=== PATIENT | male | born 1965 | race Caucasian/White ===

== ENCOUNTER 2018-09-24 08:52 | Day surgery (SDC) | payer BC ==
[2018-09-04 11:28] VITALS: BMI 35.2
[~2018-09-24 08:52] MED LIST: HEPARIN SODIUM,PORCINE 5,000 UNIT/ML 1 ML VIAL SQ ONE; LACTATED RINGERS 1,000 ML IV SCH; LIDOCAINE 1% 20 ML VIAL (10MG/ML) FOR IV START INTRADERMA PRN; ONDANSETRON 4 MG/2 ML VIAL IVP ONE; ceFAZolin IN SWFI 2 GM/20 ML SYRINGE IVP ONE
--- NOTE | 2018-09-24 10:22 | P.GSHP ---
History of Present Illness H&P Date: 09/24/18 Chief Complaint: Incarcerated umbilical hernia Patient here today for elective hernia repair. Patient has had complaints of pain and swelling at the umbilicus for the last 2-3 months. Increasing in size. Unable to reduce it himself. No history of similar events. Past Medical History Past Medical History: Blood Disorder, Deep Vein Thrombosis (DVT), Hyperlipidemia , Hypertension, Musculoskeletal Disorder, Pulmonary Embolus (PE) Additional Past Medical History / Comment(s): Enlarged heart. HX Lt leg dvt, JENNIFER PE 2013. HX G6PD deficency; PATIENT DENIES "BLOOD DISORDER HX." DDD, chronic back/NECK pain. UMB HERNIA CURRENTLY. History of Any Multi-Drug Resistant Organisms: None Reported Past Surgical History: Hernia Repair Additional Past Surgical History / Comment(s): Rt inguinal hernia. LT MENISCUS REPAIR. DENTAL PROC. Past Anesthesia/Blood Transfusion Reactions: No Reported Reaction Smoking Status: Never smoker - Past Family History Father Family Medical History: Cancer, Hypertension Additional Family Medical History / Comment(s): at age 62- cancer was smoker Mother Family Medical History: Asthma, Diabetes Mellitus, Hypertension Additional Family Medical History / Comment(s): mom is 72 Medications and Allergies Home Medications Medication Instructions Recorded Confirmed Type HYDROcodone/APAP 7.5-325MG [[place] 1 each PO Q6HR PRN 06/29/14 09/24/18 History 7.5-325] Lisinopril [Prinivil] 20 mg PO HS 06/29/14 09/24/18 History Escitalopram Oxalate [Lexapro] 10 mg PO DAILY 09/04/18 09/24/18 History Hydrochlorothiazide [Hydrodiuril] 25 mg PO DAILY 09/04/18 09/24/18 History Naphazoline HCl/Glycerin [Clear 1 - 2 drops OP DIRECTED PRN 09/04/18 History Eyes Max Redness Rlf Drp] Rivaroxaban [Xarelto] 20 mg PO DAILY 09/04/18 09/24/18 History amLODIPine [Norvasc] 5 mg PO DAILY 09/04/18 09/24/18 History Allergies Allergy/AdvReac Type Severity Reaction Status Date / Time black electrical tape Allergy Itching Uncoded 09/24/18 09:20 Surgical - Exam Vital Signs Temp Pulse Resp BP Pulse Ox 97.5 F L 67 16 135/76 96 09/24/18 09:29 09/24/18 09:29 09/24/18 09:29 09/24/18 09:29 09/24/18 09:29 Physical exam: General: Well-developed, well-nourished HEENT: Normocephalic, sclerae nonicteric Abdomen: Nontender, nondistended, incarcerated umbilical hernia Extremities: No edema Neuro: Alert and oriented Assessment and Plan (1) Umbilical hernia, incarcerated Narrative/Plan: Will proceed with open repair incarcerated umbilical hernia with probable mesh. Risks of bleeding, infection, recurrence, bladder and bowel injury, numbness, nerve injury were discussed with the patient. The patient understands and wishes to proceed. Current Visit: Yes Status: Acute Code(s): K42.0 - UMBILICAL HERNIA WITH OBSTRUCTION, WITHOUT GANGRENE SNOMED Code(s): 345808262
[2018-09-24] MEDS ORDERED: MIDAZOLAM 2 MG/2 ML VIAL IV ONE (10:25)
[2018-09-24] MEDS ORDERED: fentaNYL (PF) 50 MCG/ML 2 ML AMP IV ONE (10:26)
[2018-09-24] MEDS ORDERED: DEXAMETHASONE SOD PHOSPHATE 10 MG/ML 1 ML VIAL IV ONE (10:43)
[2018-09-24] MEDS ORDERED: KETOROLAC 30 MG/ML 1 ML VIAL ONE (10:44)
[2018-09-24] MEDS ORDERED: ROPIVACAINE 5 MG/ML 30 ML VIAL ONE (10:44)
[2018-09-24] MEDS ORDERED: GLYCOPYRROLATE 0.2 MG/ML 2 ML VIAL ONE (10:44)
[2018-09-24] MEDS ORDERED: PROPOFOL 10 MG/ML 20 ML VIAL IV ONE (10:44)
[2018-09-24] MEDS ORDERED: NEOSTIGMINE 1 MG/ML 10 ML VIAL ONE (10:44)
[2018-09-24] MEDS ORDERED: ROCURONIUM BROMIDE 10 MG/ML 10 ML VIAL IV ONE (10:44)
[2018-09-24] MEDS ORDERED: fentaNYL (PF) 50 MCG/ML 2 ML AMP ONE (10:44)
[2018-09-24] MEDS ORDERED: SUCCINYLCHOLINE CHLORIDE 100 MG/5 ML SYR IV ONE (10:44)
[2018-09-24] MEDS ORDERED: LIDOCAINE 1% INJ 10MG/ML (20 ML MDV) ONE (10:44)
[2018-09-24] MEDS ORDERED: LACTATED RINGERS 1,000 ML IV ONE (11:33)
[2018-09-24] MEDS ORDERED: HYDROcodone/APAP 5-325MG 1 EACH TAB PO PRN (11:45)
[2018-09-24] MEDS ORDERED: NALOXONE 0.4 MG/ML 1 ML VIAL IV PRN (11:45)
--- NOTE | 2018-09-24 11:47 | P.OP ---
Date of Procedure: 09/24/18 Procedure(s) Performed: PREOPERATIVE DIAGNOSIS: Incarcerated umbilical hernia POSTOPERATIVE DIAGNOSIS: Same PROCEDURE: Incarcerated umbilical herniorrhaphy with mesh SURGEON: Amira EBL: Minimal ANESTHESIA: General COMPLICATIONS: None OPERATIVE PROCEDURE: The patient was placed in the operating table in the supine position. A periumbilical incision was made using the scalpel. The subcutaneous tissues were dissected bluntly. The hernia sac was identified. The umbilical attachments to the fascia were divided using electrocautery. The hernia sac was excised. The hernia sac was sent to pathology. The defect was 1.5cm in size. The pre-perineal space was dissected using blunt dissection and cautery. The 4.3 cm ventral ex mesh was placed in the preperitoneal space and sutured in place using interrupted transfer fascial 0 Ethibond sutures. Following that the defect was closed using interrupted [id number] 0 Ethibond sutures. The subcutaneous tissues were reapproximated using inverted 3 -0 Vicryl sutures. The umbilicus was tacked back down to the fascia using a 3- 0 Vicryl suture. The skin was closed using 4-0 Monocryl sutures. Skin glue and sterile dressings were then applied. DISPOSITION: Stable to recovery room
[2018-09-24 11:59] VITALS: TEMP 97.1
[2018-09-24] MEDS: HYDROmorphone 0.5 MG/0.5 ML SYRINGE IVP PRN ×2 (12:13→12:21)
[2018-09-24 13:16] VITALS: BP 131/80; PULSE 65; RESP 15
--- NOTE | 2018-09-27 08:58 | P.ONQ ---
Anesthesiology Proc Note - PNB - Peripheral Nerve Block Performed Bilateral Rectus Abdominis Single Time Out Performed: Yes Procedure Start Time: Procedure Stop Time: Indication: Acute Post-Operative Pain, Requested by physician Sedation Type: Sedate with meaningful contact maintained Preparation: Sterile Prep Position: Supine Needle Size: 50mm (2") Needle Gauge: 21 Technique: Ultrasound Injectate: 0.5% Ropivacaine (see comment for volume) (ropi .5% 15cc plus xylo 1 % 5cc injected each side) Blood Aspirated: No Pain Paresthesia on Injection Noted: No Resistance on Injection: Normal Events: Uneventful and Well Tolerated
== END 2018-09-24 13:36 | disposition home or self-care (01) ==
LOC: OR 08:52
PROVIDERS: ATTEND Surgery
DX: K42.0 Umbilical hernia with obstruction, without gangrene (principal); I10 Essential (primary) hypertension; E78.5 Hyperlipidemia, unspecified; D55.0 Anemia due to glucose-6-phosphate dehydrogenase [G6PD] deficiency; Z86.718 Personal history of other venous thrombosis and embolism; Z86.711 Personal history of pulmonary embolism; Z87.898 Personal history of other specified conditions; Z87.39 Personal history of other diseases of the musculoskeletal system and connective tissue; Z80.9 Family history of malignant neoplasm, unspecified; Z79.01 Long term (current) use of anticoagulants; Z79.891 Long term (current) use of opiate analgesic; Z79.899 Other long term (current) drug therapy; Z91.048 Other nonmedicinal substance allergy status
CPT/HCPCS: 64486; 88302; 49587; C1781; J2250; J1644; J1100; J2710; J2405; J2001; J3010; J1885; J2795; J0330; J2704; J1170; J0690

== ENCOUNTER → 2020-06-10 | Outpatient (CLI) | payer BC ==
--- NOTE | 2020-06-10 12:53 | US ---
EXAMINATION TYPE: US venous doppler duplex LE RT DATE OF EXAM: 06/10/2020 12:36 PM COMPARISON: NONE CLINICAL HISTORY: M79.661 pain in righ calf. pain right leg, patient on Xarelto SIDE PERFORMED: right TECHNIQUE: The lower extremity deep venous system is examined utilizing real time linear array sonog zohaib with graded compression, doppler sonography and color-flow sonography. VESSELS IMAGED: External Iliac Vein (EIV) Common Femoral Vein Deep Femoral Vein Greater Saphenous Vein * Femoral Vein Popliteal Vein Small Saphenous Vein * Proximal Calf Veins (* superficial vessels) Right Leg: No evidence of DVT IMPRESSION: No evidence of DVT at this time.
== END | disposition home or self-care (01) ==
LOC: RADUSWWP 12:17
PROVIDERS: ATTEND Family Medicine
DX: M79.661 Pain in right lower leg (principal)

== ENCOUNTER 2020-07-08 06:14 | Day surgery (SDC) | payer BC ==
[2020-07-07 08:14] VITALS: BMI 29.7
--- NOTE | 2020-07-07 21:20 | P.GSHP ---
History of Present Illness H&P Date: 07/08/20 CHIEF COMPLAINT: Back mass HISTORY OF PRESENT ILLNESS: The patient is a 54 year-old male with history of lipomas of the upper back. He presents today for surgical excision. PAST MEDICAL HISTORY: Please see list. PAST SURGICAL HISTORY: Please see list. MEDICATIONS: Please see list. ALLERGIES: Please see list. SOCIAL HISTORY: No illicit drug use FAMILY HISTORY: No reports of Crohn disease or ulcerative colitis. REVIEW OF ORGAN SYSTEMS: CONSTITUTIONAL: No reports of fevers or chills. GI: Denies any blood in stools or constipation. PHYSICAL EXAM: VITAL SIGNS: Stable Musculoskeletal: No clubbing, cyanosis, or edema SKIN: Approximately 3 cm lipoma upper back. GENERAL: Well developed and in no acute distress. Pleasant. HEENT: No sclera icterus. Extraocular movements grossly intact. Moist buccal mucosa. Head is atraumatic, normocephalic. Hears conversational speech. No nasal drainage. NECK: Supple without lymphadenopathy. No JV distention. CHEST: Non-labored respirations and equal bilateral excursions. CARDIOVASCULAR: Regular rate and rhythm. Palpable 2+ radial pulses. ABDOMEN: Soft. Non-tender. Nondistended. NEUROLOGIC: No focal or lateralizing signs. PSYCH: Appropriate affect. Alert and oriented to person, place and time. ASSESSMENT: 1. Lipomas along the back. PLAN: 1. Will proceed of excision of subcutaneous tumor along the upper back. 2. DVT prophylaxis. 3. Antibiotic prophylaxis. 4. Time of recovery, at least one week. Past Medical History Past Medical History: Blood Disorder, Deep Vein Thrombosis (DVT), Hyperlipidemia, Hypertension, Musculoskeletal Disorder, Pulmonary Embolus (PE) Additional Past Medical History / Comment(s): Enlarged heart. HX Lt leg dvt, JENNIFER PE 2013. HX G6PD deficency; PATIENT DENIES "BLOOD DISORDER HX." DDD, chronic back/NECK pain. History of Any Multi-Drug Resistant Organisms: None Reported Past Surgical History: Hernia Repair, Orthopedic Surgery Additional Past Surgical History / Comment(s): Rt inguinal hernia. LT MENISCUS REPAIR. DENTAL PROC. , UMBILICAL HERNIA Past Anesthesia/Blood Transfusion Reactions: No Reported Reaction Smoking Status: Never smoker - Past Family History Father Family Medical History: Cancer, Hypertension Additional Family Medical History / Comment(s): at age 62- cancer was smoker Mother Family Medical History: Asthma, Diabetes Mellitus, Hypertension Additional Family Medical History / Comment(s): mom is 72 Medications and Allergies Home Medications Medication Instructions Recorded Confirmed Type HYDROcodone/APAP 7.5-325MG [[place] 1 each PO Q6HR PRN 06/29/14 07/07/20 History 7.5-325] lisinopriL [Prinivil] 20 mg PO HS 06/29/14 07/07/20 History Naphazoline HCl/Glycerin [Clear 1 - 2 drops OP DIRECTED PRN 09/04/18 07/07/20 History Eyes Max Redness Rlf Drp] Rivaroxaban [Xarelto] 20 mg PO DAILY 09/04/18 07/07/20 History amLODIPine [Norvasc] 5 mg PO DAILY 09/04/18 07/07/20 History hydroCHLOROthiazide [Hydrodiuril] 25 mg PO DAILY 09/04/18 07/07/20 History Allergies Allergy/AdvReac Type Severity Reaction Status Date / Time black electrical tape Allergy Itching Uncoded 07/07/20 08:07
[~2020-07-08 06:14] MED LIST changes: +ACETAMINOPHEN TAB 500 MG TAB PO STA; +DEXAMETHASONE SOD PHOSPHATE 10 MG/ML 1 ML VIAL IV ONE; +GABAPENTIN 300 MG CAP PO STA; -HEPARIN SODIUM,PORCINE 5,000 UNIT/ML 1 ML VIAL SQ ONE; +HYDROmorphone 0.5 MG/0.5 ML SYRINGE IVP PRN; +LIDOCAINE 1% (10MG/ML) FOR IV START INTRADERMA PRN; -LIDOCAINE 1% 20 ML VIAL (10MG/ML) FOR IV START INTRADERMA PRN; +MIDAZOLAM 2 MG/2 ML VIAL IV PRN; +Pre Op ABX Message 1 EACH MISC MISCELLANE ONE; -ceFAZolin IN SWFI 2 GM/20 ML SYRINGE IVP ONE
[2020-07-08] MEDS ORDERED: fentaNYL (PF) 50 MCG/ML 2 ML AMP ONE (07:38)
[2020-07-08] MEDS ORDERED: ePHEDrine SULFATE/0.9% NACL/PF 50 MG/5 ML SYRINGE IV ONE (07:38)
[2020-07-08] MEDS ORDERED: MIDAZOLAM 2 MG/2 ML VIAL ONE (07:38)
[2020-07-08] MEDS ORDERED: PROPOFOL 10 MG/ML 20 ML VIAL IV ONE (07:38)
[2020-07-08] MEDS ORDERED: LIDOCAINE 1% INJ 10MG/ML (20 ML MDV) ONE (07:38)
[2020-07-08] MEDS ORDERED: SUCCINYLCHOLINE CHLORIDE 100 MG/5 ML SYR IV ONE (07:38)
[2020-07-08] MEDS ORDERED: BUPIVACAINE (PF) 0.25% 30 ML VIAL SQ ONE ×2 (08:10→08:20)
[2020-07-08 09:03] VITALS: TEMP 97.6
[2020-07-08] MEDS ORDERED: KETOROLAC 15 MG/ML 1 ML VIAL IVP ONE (09:16)
[2020-07-08 09:34] VITALS: PULSE 74
[2020-07-08 09:42] VITALS: BP 121/72; RESP 16
--- NOTE | 2020-07-08 10:06 | P.OP ---
Date of Procedure: 07/08/20 Description of Procedure: SURGEON: CHARLEY MURRAY MD MANAGER RADIO: None. PREOPERATIVE DIAGNOSES: 1. Left upper back tumor 2. Chronic anticoagulant use 3. Hypertensive heart disease 4. Chronic back pain 5. History of deep venous thrombosis 6. Cardiomyopathy 7. History of G6PD deficiency 8. Hyperlipidemia POSTOPERATIVE DIAGNOSES: 1. Deep subcutaneous left upper back tumor, 8 x 4 cm 2. Chronic anticoagulant use 3. Hypertensive heart disease 4. Chronic back pain 5. History of deep venous thrombosis 6. Cardiomyopathy 7. History of G6PD deficiency 8. Hyperlipidemia PROCEDURES PERFORMED: 1. Excision of deep subcutaneous left upper back mass, 8 x 4 cm 2. Complex four layer closure left upper back incision, 9 -cm Anesthesia: GETA, local Estimated Blood Loss (ml): 20 Pathology: other (back mass) Condition: stable Disposition: same day COMPLICATIONS: None. Operative Findings: 1. Excision of deep subcutaneous left upper back tumor 8 x 4 cm 2. Ruptured sebaceous containing cyst excised INDICATIONS: The patient is a 54-year-old male who presents with symptomatic left upper back tumor. Benefits and risks of surgical intervention were described including bleeding, infection, seroma, pain and recurrence. Informed consent was obtained. DESCRIPTION OR PROCEDURE: In the preoperative area, the area of concern was marked with indelible marker. Patient was brought into the operating room. After general induction, he was positioned in prone. The back was prepped and draped in a standard sterile fashion with ChloraPrep. Timeout protocol was confirmed with the surgical team regarding the patient's name, procedure to be performed including preoperative medications. DVT prophylaxis was confirmed. A field block was placed of the left upper back. An transverse elliptical incision using #10 blade was made along the marking into the dermis and subcutaneous tissue. Electro-Bovie cautery was used to enter deep into the deep subcutaneous tissue to the fascia where sebaceous type material from ruptured cyst was identified and removed in total of 8 x 4 cm. 0 Vicryl for the deep subcutaneous tissue followed by 3-0 Vicryl for the subcutaneous tissue was placed in interrupted fashion. 3-0 Monocryl in a running subcuticular fashion was placed along the dermis. The skin was cleansed and Exofin tape with liquid was applied for a four layer closure. The incision was covered with Optifoam dressing. At the end of the procedure, needle, sponge, and instrument count was verified correct by cardiovascular surgical tech. The patient tolerated the procedure well. Plan - Discharge Summary Discharge Rx Participant: No New Discharge Prescriptions: New Acetaminophen [Tylenol] 650 mg PO Q4H #30 tab Continue HYDROcodone/APAP 7.5-325MG [[place] 7.5-325] 1 each PO Q6HR PRN PRN Reason: Pain lisinopriL [Prinivil] 20 mg PO HS amLODIPine [Norvasc] 5 mg PO DAILY Rivaroxaban [Xarelto] 20 mg PO DAILY hydroCHLOROthiazide [Hydrodiuril] 25 mg PO DAILY Naphazoline HCl/Glycerin [Clear Eyes Max Redness Rlf Drp] 1 - 2 drops OP DIRECTED PRN PRN Reason: DRYNESS Discharge Medication List HYDROcodone/APAP 7.5-325MG [[place] 7.5-325] 1 each PO Q6HR PRN 06/29/14 [History] lisinopriL [Prinivil] 20 mg PO HS 06/29/14 [History] Naphazoline HCl/Glycerin [Clear Eyes Max Redness Rlf Drp] 1 - 2 drops OP DIRECTED PRN 09/04/18 [History] Rivaroxaban [Xarelto] 20 mg PO DAILY 09/04/18 [History] amLODIPine [Norvasc] 5 mg PO DAILY 09/04/18 [History] hydroCHLOROthiazide [Hydrodiuril] 25 mg PO DAILY 09/04/18 [History] Acetaminophen [Tylenol] 650 mg PO Q4H #30 tab 07/08/20 [Rx] Follow up Appointment(s)/Referral(s): Charley Murray MD [STAFF PHYSICIAN] - 07/12/20 Patient Instructions/Handouts: *Surgery [facility] - (Anesthesia) Discharge Instructions Outpatient Surgery, Dermal Cyst Excision (DC), Excision of Skin Lesion (DC) Activity/Diet/Wound Care/Special Instructions: DO NOT STAR XARELTO/BLOOD THINNER UNTIL JUL 12, SATURDAY NOTIFY YOUR PAIN DOCTOR FOR MORE NARCOTICS, if needed DO NOT REMOVE DRESSING! KEEP DRESSING DRY. Use ice along the dressing to m inimize bruising. May gently wash around the dressing with soap and water. EXPECT BRUISING resolves within 1-2 weeks. Please take Tylenol scheduled for next 2-3 days. Discharge Disposition: HOME SELF-CARE
[2020-07-08] MEDS ORDERED: ENOXAPARIN 40 MG/0.4 ML SYRINGE SQ STA (10:07)
[2020-07-08] MEDS ORDERED: ENOXAPARIN 40 MG/0.4 ML SYRINGE SQ ONE (11:00)
== END 2020-07-08 10:30 | disposition home or self-care (01) ==
LOC: OR 06:14
PROVIDERS: ATTEND Surgery Plastic and Reconstructive Surgery
DX: L72.0 Epidermal cyst (principal); I11.9 Hypertensive heart disease without heart failure; I43 Cardiomyopathy in diseases classified elsewhere; G89.29 Other chronic pain; M54.9 Dorsalgia, unspecified; M54.2 Cervicalgia; D75.A Glucose-6-phosphate dehydrogenase (G6PD) deficiency without anemia; E78.5 Hyperlipidemia, unspecified; M51.9 Unspecified thoracic, thoracolumbar and lumbosacral intervertebral disc disorder; Z86.018 Personal history of other benign neoplasm; Z86.718 Personal history of other venous thrombosis and embolism; Z86.711 Personal history of pulmonary embolism; Z87.19 Personal history of other diseases of the digestive system; Z98.890 Other specified postprocedural states; Z87.39 Personal history of other diseases of the musculoskeletal system and connective tissue; Z79.891 Long term (current) use of opiate analgesic; Z79.899 Other long term (current) drug therapy; Z79.01 Long term (current) use of anticoagulants; Z91.09 Other allergy status, other than to drugs and biological substances; Z80.9 Family history of malignant neoplasm, unspecified; Z81.2 Family history of tobacco abuse and dependence; Z82.49 Family history of ischemic heart disease and other diseases of the circulatory system; Z82.5 Family history of asthma and other chronic lower respiratory diseases; Z83.3 Family history of diabetes mellitus
CPT/HCPCS: 88304; 11406; 12034; J2250; J1100; J0690; J2405; J2001; J1650; J3010; J1885; J0330; J2704

== ENCOUNTER 2020-07-28 06:18 | Day surgery (SDC) | payer BC ==
[2020-07-26 14:03] VITALS: BMI 29.8
[~2020-07-28 06:18] MED LIST changes: -ACETAMINOPHEN TAB 500 MG TAB PO STA; -DEXAMETHASONE SOD PHOSPHATE 10 MG/ML 1 ML VIAL IV ONE; +DEXAMETHASONE SOD PHOSPHATE 4 MG/ML 1 ML VIAL IV ONE; -GABAPENTIN 300 MG CAP PO STA
[2020-07-28] MEDS ORDERED: MIDAZOLAM 2 MG/2 ML VIAL ONE (07:30)
[2020-07-28] MEDS ORDERED: PROPOFOL 10 MG/ML 20 ML VIAL IV ONE (07:30)
[2020-07-28] MEDS ORDERED: fentaNYL (PF) 50 MCG/ML 2 ML AMP ONE (07:30)
[2020-07-28] MEDS ORDERED: LIDOCAINE 1% INJ 10MG/ML (20 ML MDV) ONE (07:30)
[2020-07-28] MEDS ORDERED: ePHEDrine SULFATE/0.9% NACL/PF 50 MG/5 ML SYRINGE IV ONE (07:30)
--- NOTE | 2020-07-28 07:49 | P.GSHP ---
History of Present Illness H&P Date: 07/28/20 CHIEF COMPLAINT: Right shoulder madd HISTORY OF PRESENT ILLNESS: The patient is a 54 year-old male with history of mass along the right shoulder. He presents today for surgical excision. PAST MEDICAL HISTORY: Please see list. PAST SURGICAL HISTORY: Please see list. MEDICATIONS: Please see list. ALLERGIES: Please see list. SOCIAL HISTORY: Please see list. FAMILY HISTORY: No reports of Crohn disease or ulcerative colitis. REVIEW OF ORGAN SYSTEMS: CONSTITUTIONAL: No reports of fevers or chills. GI: Denies any blood in stools or constipation. PHYSICAL EXAM: VITAL SIGNS: Stable Musculoskeletal: No clubbing cyanosis or edema SKIN: Right shoulder mass 4 cm GENERAL: Well developed and in no acute distress. Pleasant. HEENT: No sclera icterus. Extraocular movements grossly intact. Moist buccal mucosa. Head is atraumatic, normocephalic. Hears conversational speech. No nasal drainage. NECK: Supple without lymphadenopathy. No JV distention. CHEST: Non-labored respirations and equal bilateral excursions. CARDIOVASCULAR: Regular rate and rhythm. Palpable 2+ radial pulses. ABDOMEN: Soft. Non-tender. Nondistended. NEUROLOGIC: No focal or lateralizing signs. PSYCH: Appropriate affect. Alert and oriented to person, place and time. ASSESSMENT: 1. Right shoulder mass PLAN: 1. Will proceed of excision of subcutaneous tumor along the right shoulder 2. DVT prophylaxis. 3. Antibiotic prophylaxis. 4. Time of recovery, at least one week. Past Medical History Past Medical History: Blood Disorder, Deep Vein Thrombosis (DVT), Hyperlipidemia, Hypertension, Musculoskeletal Disorder, Pulmonary Embolus (PE) Additional Past Medical History / Comment(s): Enlarged heart. HX Lt leg dvt, JENNIFER PE 2013. HX G6PD deficency; PATIENT DENIES "BLOOD DISORDER HX." DDD, chronic back/NECK pain. History of Any Multi-Drug Resistant Organisms: None Reported Past Surgical History: Hernia Repair, Orthopedic Surgery Additional Past Surgical History / Comment(s): Rt inguinal hernia. LT MENISCUS REPAIR. DENTAL PROC. , UMBILICAL HERNIA, cyst removed from back Past Anesthesia/Blood Transfusion Reactions: No Reported Reaction Smoking Status: Never smoker - Past Family History Father Family Medical History: Cancer, Hypertension Additional Family Medical History / Comment(s): at age 62- cancer was smoker Mother Family Medical History: Asthma, Diabetes Mellitus, Hypertension Additional Family Medical History / Comment(s): mom is 72 Medications and Allergies Home Medications Medication Instructions Recorded Confirmed Type HYDROcodone/APAP 7.5-325MG [[place] 1 each PO Q6HR PRN 06/29/14 07/28/20 History 7.5-325] lisinopriL [Prinivil] 20 mg PO HS 06/29/14 07/28/20 History Naphazoline HCl/Glycerin [Clear 1 - 2 drops OP DIRECTED PRN 09/04/18 07/28/20 History Eyes Max Redness Rlf Drp] Rivaroxaban [Xarelto] 20 mg PO DAILY 09/04/18 07/28/20 History amLODIPine [Norvasc] 5 mg PO DAILY 09/04/18 07/28/20 History hydroCHLOROthiazide [Hydrodiuril] 25 mg PO DAILY 09/04/18 07/28/20 History Allergies Allergy/AdvReac Type Severity Reaction Status Date / Time black electrical tape Allergy Itching Uncoded 07/28/20 07:06 Surgical - Exam Vital Signs Temp Pulse Resp BP Pulse Ox 97.6 F 66 16 119/65 96 07/28/20 06:49 07/28/20 06:49 07/28/20 06:49 07/28/20 06:49 07/28/20 06:49
[2020-07-28] MEDS ORDERED: SODIUM CHLORIDE 0.9% 100 ML with ceFAZolin 2,000 MG IV ONE ×4 (07:57)
[2020-07-28] MEDS ORDERED: LIDOCAINE 1%-EPI 1:100,000 20 ML VIAL SQ ONE (08:08)
[2020-07-28 08:49] VITALS: TEMP 97.3
--- NOTE | 2020-07-28 08:55 | P.OP ---
Date of Procedure: 07/28/20 Description of Procedure: SURGEON: CHARLEY MURRAY MD CERAMIC TILER: None. PREOPERATIVE DIAGNOSES: 1. Right anterior shoulder mass 2. Chronic anticoagulant use 3. Hypertensive heart disease 4. Chronic back pain 5. History of deep venous thrombosis 6. Cardiomyopathy 7. History of G6PD deficiency 8. Hyperlipidemia POSTOPERATIVE DIAGNOSES: 1. Subcutaneous right anterior shoulder mass, 6 cm 2. Chronic anticoagulant use 3. Hypertensive heart disease 4. Chronic back pain 5. History of deep venous thrombosis 6. Cardiomyopathy 7. History of G6PD deficiency 8. Hyperlipidemia PROCEDURES PERFORMED: 1. Excision of deep subcutaneous right anterior shoulder mass, 6 cm 2. Intermediate closure right anterior shoulder incision, 7 -cm Anesthesia: LMA, local Estimated Blood Loss (ml): 5 Pathology: other (shoulder mass) Condition: stable Disposition: same day COMPLICATIONS: None. FINDINGS: 1. Complex interdigitating multilobulated lipoma right anterior shoulder extending to the fascia, 6 cm INDICATIONS: The patient is a 54-year-old male who presents with right shoulder tumor. Benefits and risks of surgical intervention were described including bleeding, infection. Informed consent was obtained. DESCRIPTION OR PROCEDURE: In the preoperative area, the area of concern was marked with indelible marker. Patient was brought into the operating room. After general induction, he was positioned in right lateral decubitus position. The shouler was prepped and draped in a standard sterile fashion with ChloraPrep. Timeout protocol was confirmed with the surgical team regarding the patient's name, procedure to be performed including preoperative medications. DVT prophylaxis was confirmed with SCDs. A field block was placed of the left shoulder. A longitudinal 7-cm incision made over the prominence of the mass using #15 blade. Electro-Bovie cautery including blunt dissection was used to circumferential dissect an interdigitating multilobulated lipoma that extended to the fascia of the right shoulder. Hemostasis was obtained. 0 Vicryl was placed for the deep subcutaneous tissue followed by 3-0 Vicryl for the subcutaneous tissue and3-0 Monocryl for the dermis in a running subcuticular fashion. The skin was cleansed and Exofin tape with liquid was applied. The incision was covered with Optifoam dressing. Local anesthetic was placed. At the end of the procedure, needle, sponge, and instrument count was verified correct by surgical pathologist. Operative findings including digital imaging was shared with the patient's family. Plan - Discharge Summary Discharge Rx Participant: No New Discharge Prescriptions: New Acetaminophen [Tylenol] 650 mg PO Q4H #30 tab Continue HYDROcodone/APAP 7.5-325MG [[place] 7.5-325] 1 each PO Q6HR PRN PRN Reason: Pain lisinopriL [Prinivil] 20 mg PO HS amLODIPine [Norvasc] 5 mg PO DAILY Rivaroxaban [Xarelto] 20 mg PO DAILY hydroCHLOROthiazide [Hydrodiuril] 25 mg PO DAILY Naphazoline HCl/Glycerin [Clear Eyes Max Redness Rlf Drp] 1 - 2 drops OP DIRECTED PRN PRN Reason: DRYNESS Discharge Medication List HYDROcodone/APAP 7.5-325MG [[place] 7.5-325] 1 each PO Q6HR PRN 06/29/14 [History] lisinopriL [Prinivil] 20 mg PO HS 06/29/14 [History] Naphazoline HCl/Glycerin [Clear Eyes Max Redness Rlf Drp] 1 - 2 drops OP DIRECTED PRN 09/04/18 [History] Rivaroxaban [Xarelto] 20 mg PO DAILY 09/04/18 [History] amLODIPine [Norvasc] 5 mg PO DAILY 09/04/18 [History] hydroCHLOROthiazide [Hydrodiuril] 25 mg PO DAILY 09/04/18 [History] Acetaminophen [Tylenol] 650 mg PO Q4H #30 tab 07/28/20 [Rx] Follow up Appointment(s)/Referral(s): Charley Murray MD [STAFF PHYSICIAN] - 08/02/20 Patient Instructions/Handouts: Excision of Skin Lesion (DC) Activity/Diet/Wound Care/Special Instructions: DO NOT START XARELTO BLOOD THINNER UNTIL WEDNESDAY 08/01 NO WIDE MOTIONS OF THE SHOULDERS/ARMS FOR 1 WEEK. See instructions on dressing. DO NOT REMOVE DRESSING. No lifting over 10 pounds in 2 weeks, Aug 11January shower. Do not soak dressing/incision for two weeks, Aug 11 Diet as tolerated. Notify surgeon for temperature over 101.5, increased redness along incision, increased pain along surgical site. Discharge Disposition: HOME SELF-CARE
[2020-07-28 08:56] VITALS: RESP 16
[2020-07-28] MEDS ORDERED: ENOXAPARIN 40 MG/0.4 ML SYRINGE SQ STA (09:39)
[2020-07-28 09:52] VITALS: BP 116/64; PULSE 85
== END 2020-07-28 10:22 | disposition home or self-care (01) ==
LOC: OR 06:18
PROVIDERS: ATTEND Surgery Plastic and Reconstructive Surgery
DX: D17.21 Benign lipomatous neoplasm of skin and subcutaneous tissue of right arm (principal); I11.9 Hypertensive heart disease without heart failure; E78.5 Hyperlipidemia, unspecified; D75.A Glucose-6-phosphate dehydrogenase (G6PD) deficiency without anemia; G89.29 Other chronic pain; M54.9 Dorsalgia, unspecified; M54.2 Cervicalgia; Z98.890 Other specified postprocedural states; Z86.718 Personal history of other venous thrombosis and embolism; Z86.711 Personal history of pulmonary embolism; Z79.01 Long term (current) use of anticoagulants; Z79.899 Other long term (current) drug therapy; Z91.048 Other nonmedicinal substance allergy status; Z82.49 Family history of ischemic heart disease and other diseases of the circulatory system; Z80.9 Family history of malignant neoplasm, unspecified; Z83.3 Family history of diabetes mellitus; Z82.5 Family history of asthma and other chronic lower respiratory diseases; I42.9 Cardiomyopathy, unspecified
CPT/HCPCS: 88304; 23071; J2250; J1100; J2405; J0690; J2001; J3010; J2704

== ENCOUNTER 2020-11-21 06:35 | Observation (INO) | payer BC ==
[2020-11-21] MEDS ORDERED: ORPHENADRINE 30 MG/ML 2 ML VIAL IM STA (07:16)
[2020-11-21] MEDS ORDERED: KETOROLAC 15 MG/ML 1 ML VIAL IM STA (07:16)
--- NOTE | 2020-11-21 07:31 | ED ---
General Adult HPI - General Source: patient, family, RN notes reviewed Mode of arrival: ambulatory Limitations: no limitations <Carroll Franco - Last Filed: 11/21/20 10:02> <Sandra Herzog - Last Filed: 11/22/20 23:09> - General Chief complaint: Back Pain/Injury Stated complaint: back pain Time Seen by Provider: 11/21/20 07:02 - History of Present Illness Initial comments: 55-year-old male with a past medical history of hyperlipidemia, hypertension, DVT/PE, chronic back pain presents to the emergency room for right leg pain. Patient reports that on Saturday he was golfing and he injured his back. States the pain radiated down his right leg at that time. Today has worsened. States his foot is tingling. Patient reports this feels acute sciatic pain. States he has chronic pain and has 2 slipped disks. He takes [place] for these and sees Dr. Zavala. Patient denies blood or bowel changes, saddle anesthesia, weakness of the leg or fevers.Patient has no other complaints at this time including shortness of breath, chest pain, abdominal pain, nausea or vomiting, headache, or visual changes. (Carroll Franco) - Related Data Home Medications Medication Instructions Recorded Confirmed HYDROcodone/APAP 7.5-325MG [[place] 1 tab PO QID PRN 06/29/14 11/21/20 7.5-325] lisinopriL [Prinivil] 20 mg PO HS 06/29/14 11/21/20 Rivaroxaban [Xarelto] 20 mg PO HS 09/04/18 11/21/20 amLODIPine [Norvasc] 5 mg PO DAILY 09/04/18 11/21/20 hydroCHLOROthiazide [Hydrodiuril] 25 mg PO DAILY 09/04/18 11/21/20 Allergies Allergy/AdvReac Type Severity Reaction Status Date / Time black electrical tape Allergy Rash/Hives Uncoded 11/21/20 09:42 Review of Systems ROS Other: All systems not noted in ROS Statement are negative. <Carroll Franco - Last Filed: 11/21/20 10:02> ROS Other: All systems not noted in ROS Statement are negative. <Sandra Herzog - Last Filed: 11/22/20 23:09> ROS Statement: Those systems with pertinent positive or pertinent negative responses have been documented in the HPI. Past Medical History Past Medical History: Blood Disorder, Deep Vein Thrombosis (DVT), Hyperlipidemia, Hypertension, Musculoskeletal Disorder, Pulmonary Embolus (PE) Additional Past Medical History / Comment(s): Enlarged heart. HX Lt leg dvt, JENNIFER PE 2013. HX G6PD deficency; PATIENT DENIES "BLOOD DISORDER HX." DDD, chronic back/NECK pain. History of Any Multi-Drug Resistant Organisms: None Reported Past Surgical History: Hernia Repair, Orthopedic Surgery Additional Past Surgical History / Comment(s): Rt inguinal hernia. LT MENISCUS REPAIR. DENTAL PROC. , UMBILICAL HERNIA, cyst removed from back Past Anesthesia/Blood Transfusion Reactions: No Reported Reaction Past Psychological History: Anxiety Smoking Status: Never smoker Past Alcohol Use History: None Reported Past Drug Use History: None Reported - Past Family History Father Family Medical History: Cancer, Hypertension Additional Family Medical History / Comment(s): at age 62- cancer was smoker Mother Family Medical History: Asthma, Diabetes Mellitus, Hypertension Additional Family Medical History / Comment(s): mom is 72 <Carroll Franco P - Last Filed: 11/21/20 10:02> General Exam Limitations: no limitations General appearance: alert, in no apparent distress Head exam: Present: atraumatic, normocephalic, normal inspection Eye exam: Present: normal appearance, PERRL, EOMI. Absent: scleral icterus, conjunctival injection, periorbital swelling ENT exam: Present: normal exam, mucous membranes moist Neck exam: Present: normal inspection, full ROM. Absent: tenderness, meningismus, lymphadenopathy Respiratory exam: Present: normal lung sounds bilaterally. Absent: respiratory distress, wheezes, rales, rhonchi, stridor Cardiovascular Exam: Present: regular rate, normal rhythm, normal heart sounds. Absent: systolic murmur, diastolic murmur, rubs, gallop, clicks GI/Abdominal exam: Present: soft, normal bowel sounds. Absent: distended, ten derness, guarding, rebound, rigid Extremities exam: Present: normal capillary refill (Refill less than 2 seconds, DP pulse 2+ right lower extremity), other (Patient intact RLE, strength 5 out of 5) Back exam: Absent: vertebral tenderness <Carroll Franco P - Last Filed: 11/21/20 10:02> Course Vital Signs 11/21/20 11/21/20 11/21/20 06:38 08:59 10:12 Temperature 98.2 F Pulse Rate 90 62 65 Respiratory 18 16 18 Rate Blood Pressure 162/86 128/66 158/82 O2 Sat by Pulse 96 97 98 Oximetry Medical Decision Making <Carroll Franco - Last Filed: 11/21/20 10:02> - Lab Data Result diagrams: 11/21/20 10:09 11/21/20 10:09 <Sandra Herzog - Last Filed: 11/22/20 23:09> - Medical Decision Making Vitals are stable. Patient does appear in pain upon arrival. Patient has a history of similar pain. Has multiple disc bulges on according to patient and previous MRI Neurovascular status intact right lower extremity, DP pulse 2+. Pain worsens with certain positions. Patient feels better standing. Patient was given several pain medications and still has significant pain. He contacted his pain management physician who talked with Dr. Linder and patient was told that he would be seen in the ER by orthopedics. I did speak with Dr. Linder who can see him today however not for a few hours. We will obs until that time. (Carroll Franco) I was available for consultation in the emergency department. The history and physical exam were done by the midlevel provider. I was consulted for this patients care. I reviewed the case with the midlevel provider and based on their presentation of the patient, I agree with the assessment, medical decision making and plan of care as documented. Chart was dictated using [employer] dictation software. Attempts were made to correct any dictation errors however some typographical errors may persist. (Sandra Herzog) - Lab Data Lab Results 11/21/20 11/21/20 Range/Units 10:09 10:09 WBC 5.9 (3.8-10.6) k/uL RBC 4.40 (4.30-5.90) m/uL Hgb 14.3 (13.0-17.5) gm/dL Hct 41.2 (39.0-53.0) % MCV 93.5 (80.0-100.0) fL MCH 32.4 (25.0-35.0) pg MCHC 34.6 (31.0-37.0) g/dL RDW 11.6 (11.5-15.5) % Plt Count 225 (150-450) k/uL MPV 7.3 Neutrophils % 78 % Lymphocytes % 13 % Monocytes % 5 % Eosinophils % 2 % Basophils % 1 % Neutrophils # 4.6 (1.3-7.7) k/uL Lymphocytes # 0.8 L (1.0-4.8) k/uL Monocytes # 0.3 (0-1.0) k/uL Eosinophils # 0.1 (0-0.7) k/uL Basophils # 0.0 (0-0.2) k/uL Sodium 140 (137-145) mmol/L Potassium 4.2 (3.5-5.1) mmol/L Chloride 105 (98-107) mmol/L Carbon Dioxide 27 (22-30) mmol/L Anion Gap 8 mmol/L BUN 14 (9-20) mg/dL Creatinine 0.83 (0.66-1.25) mg/dL Est GFR (CKD-EPI)AfAm >90 (>60 ml/min/1.73 sqM) Est GFR (CKD-EPI)NonAf >90 (>60 ml/min/1.73 sqM) Glucose 119 H (74-99) mg/dL Calcium 9.2 (8.4-10.2) mg/dL Disposition Is patient prescribed a controlled substance at d/c from ED?: No Time of Disposition: 10:04 <Carroll Franco P - Last Filed: 11/21/20 10:02> <Sandra Herzog - Last Filed: 11/22/20 23:09> Clinical Impression: Intractable back pain, Radiculopathy Disposition: ADMITTED IP TO THIS HOSP
[2020-11-21] MEDS ORDERED: MORPHINE SULFATE 4 MG/ML SYRINGE IM STA (08:15)
[2020-11-21] MEDS ORDERED: HYDROmorphone 1 MG/ML 1 ML SYRINGE IM STA (08:50)
[2020-11-21] MEDS ORDERED: NALOXONE 0.4 MG/ML 1 ML VIAL IV PRN (09:57)
[2020-11-21] MEDS ORDERED: HYDROmorphone 0.5 MG/0.5 ML SYRINGE IVP PRN (10:00)
[2020-11-21] MEDS ORDERED: methylPREDNISolone SOD SUCCI 125 MG/2 ML VIAL IV STA (10:01)
[2020-11-21 10:31] LABS: Basophils % (A) 1 %; Eosinophils # (A) 0.1 k/uL (0-0.7); Eosinophils % (A) 2 %; HCT 41.2 % (39.0-53.0); HGB 14.3 gm/dL (13.0-17.5); Lymphocytes # (A) 0.8 k/uL (1.0-4.8); Lymphocytes % (A) 13 %; MCH 32.4 pg (25.0-35.0); MCHC 34.6 g/dL (31.0-37.0); MCV 93.5 fL (80.0-100.0); Mean Platelet Volume 7.3; Monocytes # (A) 0.3 k/uL (0-1.0); Monocytes % (A) 5 %; Neutrophils # (A) 4.6 k/uL (1.3-7.7); Neutrophils % (A) 78 %; Platelet Count 225 k/uL (150-450); RDW 11.6 % (11.5-15.5); WBC 5.9 k/uL (3.8-10.6)
[2020-11-21 10:48] LABS: African American GFR (CKD) >90 (>60 ml/min/1.73 sqM); Anion Gap 8 mmol/L; Blood Urea Nitrogen 14 mg/dL (9-20); Calcium 9.2 mg/dL (8.4-10.2); Carbon Dioxide 27 mmol/L (22-30); Chloride 105 mmol/L (98-107); Glucose 119 mg/dL (74-99); Non-African American GFR(CKD) >90 (>60 ml/min/1.73 sqM); Potassium 4.2 mmol/L (3.5-5.1); Sodium 140 mmol/L (137-145)
[2020-11-21] MEDS ORDERED: HYDROcodone/APAP 7.5-325MG 1 EACH TAB PO PRN (11:04)
[2020-11-21] MEDS ORDERED: ALPRAZolam 1 MG TAB PO STA (12:02)
[2020-11-21] MEDS ORDERED: MAGNESIUM HYDROXIDE 2,400 MG/10 ML CUP PO PRN (12:02)
[2020-11-21] MEDS ORDERED: HYDROmorphone 1 MG/ML 1 ML SYRINGE IVP PRN (12:02)
[2020-11-21] MEDS: hydroCHLOROthiazide 25 MG TAB PO SCH (12:14)
[2020-11-21] MEDS: amLODIPine 5 MG TAB PO SCH (12:14)
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
--- NOTE | 2020-11-21 14:42 | XR ---
EXAM TYPE: LUMBAR SPINE X RAY SERIES COMPARISON: NONE HISTORY: Back pain TECHNIQUE: 3 views are submitted. FINDINGS: Alignment is anatomic. The pedicles are intact. The transverse processes are intact. There is no d egenerative disc disease L4-5 and L5-S1. Schmorl's nodes are seen at multiple levels. IMPRESSION: 1. Degenerative disc disease L4-5 and L5-S1.
--- NOTE | 2020-11-21 14:59 | MR ---
EXAMINATION TYPE: MR lumbar spine wo con DATE OF EXAM: 11/21/2020 COMPARISON: Lumbar spine x-ray November 21, 2020 HISTORY: Right lower extremity weakness. TECHNIQUE: Multiplanar, multisequence imaging of the lumbar spine is performed without IV contrast. FINDINGS: Sagittal images of the lumbar spine show vertebral body heights to remain satisfactory. Ali gnment stable and straightened. Disc desiccation L4-L5 and L5-S1 levels. Mild disc space narrowing L5 -S1 level. Mild multilevel anterior spurring in the upper lumbar spine. The conus medullaris is norm al in position and signal ending mid L1 level. There is hemangioma involving the superior L2 vertebra left aspect sagittal image 4. Axial images show T12-L1, L1-L2, and L2-L3 levels all to appear within normal limits. Axial images at L3-L4 level mild broad disc bulge and mild facet degenerative changes. Spinal canal p reserved. Axial images at L4-L5 level show posterior annular tear with broad-based central disc protrusion and mild facet arthropathy. Spinal canal preserved. The bilateral neural foramina are patent. Axial images at L5-S1 level show focal broad-based right paracentral disc protrusion but the spinal c anal is preserved as there is increased epidural fat at this level. This measures 15 mm transversely by 4 mm AP diameter axial image 1. Some encroachment along the anterior deep aspect right S1 nerve fl ow present on axial image 2 corresponding to sagittal image 9. Mild facet arthropathy bilaterally. Pa tent bilateral neural foramina. Paraspinal muscle bulk is maintained. IMPRESSION: Some degenerative changes in the lower lumbar spine as detailed above. Most prominent dis c herniation L5-S1 level encroaches on the central right S1 nerve.
[2020-11-21] MEDS: KETOROLAC 15 MG/ML 1 ML VIAL IVP PRN (15:01)
[2020-11-21] MEDS: SODIUM CHLORIDE 0.9% 1,000 ML IV SCH (15:21)
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
[2020-11-21] MEDS: HYDROmorphone 0.5 MG/0.5 ML SYRINGE IVP PRN ×2 (17:38→22:59)
[2020-11-21] MEDS: lisinopriL 20 MG TAB PO SCH (20:56)
[2020-11-21] MEDS: GABAPENTIN 300 MG CAP PO SCH (20:56)
[2020-11-21] MEDS ORDERED: methylPREDNISolone SOD SUCCI 125 MG/2 ML VIAL IV SCH (21:00)
[2020-11-21] MEDS ORDERED: RIVAROXABAN 20 MG TAB PO SCH (21:00)
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
[2020-11-21] MEDS: methylPREDNISolone SOD SUCCI 40 MG/ML 1 ML VIAL IV SCH (22:58)
[2020-11-21] MEDS: HYDROcodone/APAP 5-325MG 1 EACH TAB PO SCH (23:01)
[2020-11-21] MEDS: NAPROXEN 250 MG TAB PO SCH (23:02)
[2020-11-21] MEDS: BACLOFEN 10 MG TAB PO SCH (23:02)
[2020-11-22] MEDS: ENOXAPARIN 40 MG/0.4 ML SYRINGE SQ SCH ×2 (00:06→09:10)
[2020-11-22] MEDS: HYDROcodone/APAP 5-325MG 1 EACH TAB PO SCH ×5 (00:08→23:53)
[2020-11-22] MEDS: SODIUM CHLORIDE 0.9% 1,000 ML IV SCH ×2 (02:56→17:26)
[2020-11-22] MEDS: HYDROmorphone 0.5 MG/0.5 ML SYRINGE IVP PRN ×4 (04:17→20:36)
[2020-11-22] MEDS: methylPREDNISolone SOD SUCCI 40 MG/ML 1 ML VIAL IV SCH ×3 (07:48→23:53)
[2020-11-22] MEDS: KETOROLAC 15 MG/ML 1 ML VIAL IVP PRN ×2 (07:48→19:52)
[2020-11-22] MEDS: BACLOFEN 10 MG TAB PO SCH ×3 (09:10→19:51)
[2020-11-22] MEDS: NAPROXEN 250 MG TAB PO SCH ×2 (09:10→19:52)
[2020-11-22] MEDS: GABAPENTIN 300 MG CAP PO SCH ×2 (09:10→19:52)
[2020-11-22] MEDS: amLODIPine 5 MG TAB PO SCH (09:11)
[2020-11-22] MEDS: hydroCHLOROthiazide 25 MG TAB PO SCH (09:11)
--- NOTE | 2020-11-22 09:20 | P.PN ---
Progress Note - Text Progress Note Date: 11/22/20 Orthopedics: History of present illness: Patient is a pleasant 55-year-old male who is seen and examined at bedside for follow-up evaluation in regards to his lumbar spine. Since being seen and examined yesterday, his symptoms have not had significant change. He continues to have pain that radiates down the right posterior thigh and the right foot. He has weakness with plantar flexion. He denies any left lower extremity radiculopathy. He states his symptoms started last 11/16/2020 and have been significantly worse since , 11/17/2020. He was seen and examined yesterday by pain management for planning for treatment with medications with reevaluation today. They may plan for an injection today. He did have lumbar MRI imaging performed which was reviewed by myself and Dr. Kendall Linder. Patient is continuing to be seen by medicine. His other medical diagnoses include history of PE and DVT, hypertension, hyperlipidemia, and chronic low back pain. Physical exam: Patient is awake, alert, and oriented 3 Vital signs stable Good chest excursion with deep inspiration and expiration Abdomen soft nontender Examination of lumbar spine reveals skin is intact with no abrasions, lacerations, or bruises; no erythema, purulence or signs of infection Pain with palpation of the lumbosacral spine and towards the right sacroiliac joint Dorsiflexion, plantarflexion, and extensor hallucis longus positive sustained bilaterally Lower extremity strength 5/5 on the left Patient is able to perform some active range of motion of the right lower extremity but is weaker as compared to the left Right lower extremity motor strength including plantarflexion is 4/5 Positive straight leg test right lower extremity Patient has some difficulty with performing hip flexion on the right No signs or symptoms of DVT; no calf pain No pain with internal and external rotation of the hips bilaterally Neurovascularly intact Pertinent studies: MRI lumbar spine taken on 11/21/2020: L3-4 broad-based disc bulge and mild facet degenerative changes; L4-5 disc desiccation, annular tear with broad-based central disc protrusion, and mild facet arthropathy without stenosis; L5-S1 disc desiccation, degenerative disc disease, broad-based right paracentral disc protrusion with some increased epidural fat with mild facet arthropathy with some impingement at the right S1 nerve Assessment: Intractable low back pain Right lower extremity radiculopathy with weakness L5-S1 herniated nucleus pulposus Lumbar facet arthropathy Lumbar degenerative disc disease History of PE and DVT Hypertension Hyperlipidemia Chronic low back pain Plan: 1. Patient has been discussed in detail with Dr. Kendall Linder. Recent lumbar MRI imaging has been reviewed by myself and Dr. Kendall Linder. Currently, the patient does have evidence of an L5-S1 herniated nucleus pulposus with some impingement of the right S1 nerve. His herniation is not severe that he is having significant symptoms. He has significant lumbosacral pain with pain radiating towards the right SI joint and pain radiating down the right posterior thigh and calf and on the right foot. He also has weakness with plantar flexion on the right. His symptoms have been ongoing over the past week. At this time, we would recommend conservative treatment with pain management. He could benefit by undergoing an epidural injection. We did discuss we would recommend exhausting all conservative treatment options before discussing the possibility of proceeding for surgical intervention. Patient feels is a good plan of care. Currently, patient is waiting for further evaluation with pain management today. He did not have significant benefit with medications as compared to yesterday. Continue pain control with medications as prescribed him Dilaudid, Toradol and [place]. We will also continue with Solu-Medrol 40 mg as prescribed by medicine. We will continue to follow patient closely. 2. Patient will continue to be seen and examined by medicine for his other medical diagnoses
[2020-11-22 11:18] VITALS: BMI 31.8
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
[2020-11-22] MEDS: lisinopriL 20 MG TAB PO SCH (19:51)
[2020-11-23] MEDS: HYDROmorphone 0.5 MG/0.5 ML SYRINGE IVP PRN ×3 (02:40→16:16)
[2020-11-23] MEDS: SODIUM CHLORIDE 0.9% 1,000 ML IV SCH ×2 (04:02→22:01)
[2020-11-23] MEDS: HYDROcodone/APAP 5-325MG 1 EACH TAB PO SCH ×3 (05:07→21:45)
[2020-11-23] MEDS: KETOROLAC 15 MG/ML 1 ML VIAL IVP PRN ×3 (05:12→21:43)
[2020-11-23] MEDS: BACLOFEN 10 MG TAB PO SCH ×3 (09:03→21:46)
[2020-11-23] MEDS: GABAPENTIN 300 MG CAP PO SCH ×2 (09:03→21:46)
[2020-11-23] MEDS: amLODIPine 5 MG TAB PO SCH (09:03)
[2020-11-23] MEDS: hydroCHLOROthiazide 25 MG TAB PO SCH (09:04)
[2020-11-23] MEDS: methylPREDNISolone SOD SUCCI 40 MG/ML 1 ML VIAL IV SCH ×2 (09:28→16:10)
[2020-11-23] MEDS: ENOXAPARIN 40 MG/0.4 ML SYRINGE SQ SCH (09:29)
[2020-11-23] MEDS: NAPROXEN 250 MG TAB PO SCH ×2 (09:29→21:46)
--- NOTE | 2020-11-23 11:38 | P.PN ---
<Geraldo Serrano - Last Filed: 11/23/20 11:37> Progress Note - Text Progress Note Date: 11/23/20 Orthopedics: History of present illness: Patient is a pleasant 55-year-old male who is seen and examined at bedside for follow-up evaluation in regards to his lumbar spine. Since being seen and examined yesterday, his symptoms have not had significant change. He continues to have pain that radiates down the right posterior thigh and the right foot. He has weakness with plantar flexion. He denies any left lower extremity radiculopathy. He states his symptoms started last 11/16/2020 and have been significantly worse since , 11/17/2020. He has difficulty ambulating to the restroom. He has difficulty sitting due to his pain. He was seen and examined yesterday by pain management previously. They may be planning for an injection today. He has been off of his Eliquis since Saturday. He did have lumbar MRI imaging performed which was reviewed by myself and Dr. Kendall Linder. Patient is continuing to be seen by medicine. His other medical mitch gnoses include history of PE and DVT, hypertension, hyperlipidemia, and chronic low back pain. Physical exam: Patient is awake, alert, and oriented 3 Vital signs stable Good chest excursion with deep inspiration and expiration Abdomen soft nontender Examination of lumbar spine reveals skin is intact with no abrasions, lacerations, or bruises; no erythema, purulence or signs of infection Pain with palpation of the lumbosacral spine and towards the right sacroiliac joint Dorsiflexion, plantarflexion, and extensor hallucis longus positive sustained bilaterally Lower extremity strength 5/5 on the left Patient is able to perform some active range of motion of the right lower extremity but is weaker as compared to the left Right lower extremity motor strength including plantarflexion is 4/5 Positive straight leg test right lower extremity Patient has some difficulty with performing hip flexion on the right No signs or symptoms of DVT; no calf pain No pain with internal and external rotation of the hips bilaterally Neurovascularly intact Pertinent studies: MRI lumbar spine taken on 11/21/2020: L3-4 broad-based disc bulge and mild facet degenerative changes; L4-5 disc desiccation, annular tear with broad-based central disc protrusion, and mild facet arthropathy without stenosis; L5-S1 disc desiccation, degenerative disc disease, broad-based right paracentral disc protrusion with some increased epidural fat with mild facet arthropathy with some impingement at the right S1 nerve Assessment: Intractable low back pain Right lower extremity radiculopathy with weakness L5-S1 herniated nucleus pulposus Lumbar facet arthropathy Lumbar degenerative disc disease History of PE and DVT Hypertension Hyperlipidemia Chronic low back pain Plan: 1. Patient has been discussed in detail with Dr. Kendall Linder. Recent lumbar MRI imaging has been reviewed by myself and Dr. Kendall Linder. Currently, the patient does have evidence of an L5-S1 herniated nucleus pulposus with some impingement of the right S1 nerve. His herniation does not appear to be severe but there is compression of the nerve and the patient has significant symptoms that correlate well at this level. He has significant lumbosacral pain with pain radiating towards the right SI joint and pain radiating down the right posterior thigh and calf and on the right foot. He also has weakness with plantar flexion on the right. He has a different sensation on the bottom of his right foot. His symptoms have been ongoing over the past week. At this time, we would recommend conservative treatment with pain management. He could benefit by undergoing an epidural injection. We did discuss we would recommend exhausting all conservative treatment options before discussing the possibility of proceeding for surgical intervention. Patient feels is a good plan of care. We did discuss if he is not having benefit injections through pain management, we would discuss proceeding for surgical intervention. We also discussed the surgical procedure and that surgical intervention would be an L5-S1 laminectomy and decompression with discectomy. This could possibly be performed tomorrow, 11/24/2020. We'll make him nothing by mouth starting at midnight in the event we would proceed for surgical intervention tomorrow. Continue pain control with medications as prescribed him Dilaudid, Toradol and [place]. We will also continue with Solu-Medrol 40 mg as prescribed by medicine. We will continue to follow patient closely. 2. Patient will continue to be seen and examined by medicine for his other medical diagnoses <Quirino Linder - Last Filed: 11/24/20 09:53> Progress Note - Text I had a long discussion with the patient as well. With his weakness has continued pain and the lack of any response from the steroid he is interested in pursuing surgical intervention. He does have a new disc herniation at L5-S1 which correlates with his symptoms and I think that he can get benefit with surgical intervention. This would also give him best chance of recovering neurologic change. We will plan for laminectomy discectomy at L5-S1. I discussed all the risks, occasions alternatives and benefits with him and discussed the risk of bleeding risk of infection risk and need further surgery risk of decreased loss of motion recurrent herniation need for further surgery as well as the fact that surgery may not alleviate his symptoms was explained we discussed the possibility of nerve injury and problems even the possibility of heart attack blindness and was explained patient elects pursue proceed with surgical intervention and signed informed consent.
[2020-11-23] MEDS: lisinopriL 20 MG TAB PO SCH (21:46)
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
[2020-11-24] MEDS: HYDROcodone/APAP 5-325MG 1 EACH TAB PO SCH ×5 (00:29→23:31)
[2020-11-24] MEDS: SODIUM CHLORIDE 0.9% 1,000 ML IV SCH ×2 (05:59→09:38)
[2020-11-24] MEDS ORDERED: ceFAZolin 1,000 MG in SODIUM CHLORIDE 0.9% IRRIGATIO 250 ML IRRIGATION PRN (06:00)
[2020-11-24] MEDS ORDERED: ceFAZolin 2 GM in SODIUM CHLORIDE 0.9% 100 ML IVPB PRN (06:00)
[2020-11-24 06:57] LABS: Prothrombin Time 10.9 sec (9.0-12.0)
[2020-11-24 06:58] LABS: Basophils % (A) 0 %; Eosinophils # (A) 0.1 k/uL (0-0.7); Eosinophils % (A) 1 %; HCT 43.1 % (39.0-53.0); HGB 14.8 gm/dL (13.0-17.5); Lymphocytes # (A) 1.7 k/uL (1.0-4.8); Lymphocytes % (A) 16 %; MCH 31.8 pg (25.0-35.0); MCHC 34.4 g/dL (31.0-37.0); MCV 92.3 fL (80.0-100.0); Mean Platelet Volume 7.4; Monocytes # (A) 0.7 k/uL (0-1.0); Monocytes % (A) 6 %; Neutrophils # (A) 8.4 k/uL (1.3-7.7); Neutrophils % (A) 77 %; Platelet Count 281 k/uL (150-450); RBC 4.67 m/uL (4.30-5.90); RDW 12.2 % (11.5-15.5)
[2020-11-24 07:12] LABS: African American GFR (CKD) >90 (>60 ml/min/1.73 sqM); Anion Gap 5 mmol/L; Blood Urea Nitrogen 23 mg/dL (9-20); Calcium 9.4 mg/dL (8.4-10.2); Carbon Dioxide 27 mmol/L (22-30); Chloride 106 mmol/L (98-107); Glucose 103 mg/dL (74-99); Non-African American GFR(CKD) >90 (>60 ml/min/1.73 sqM); Potassium 4.1 mmol/L (3.5-5.1); Sodium 138 mmol/L (137-145)
[2020-11-24] MEDS: predniSONE 20 MG TAB PO SCH (09:40)
[2020-11-24] MEDS: amLODIPine 5 MG TAB PO SCH (09:40)
[2020-11-24] MEDS: NAPROXEN 250 MG TAB PO SCH ×2 (09:40→19:50)
[2020-11-24] MEDS: BACLOFEN 10 MG TAB PO SCH ×3 (09:40→19:49)
[2020-11-24] MEDS: GABAPENTIN 300 MG CAP PO SCH ×2 (09:42→19:49)
[2020-11-24] MEDS: HYDROmorphone 0.5 MG/0.5 ML SYRINGE IVP PRN (12:17)
[2020-11-24] MEDS ORDERED: ONDANSETRON 4 MG/2 ML VIAL ONE (12:57)
[2020-11-24] MEDS ORDERED: IV FLUID CONTINUATION 700 ML IV ONE (13:26)
[2020-11-24] MEDS ORDERED: HYDROCORTISONE SUCCINATE 100 MG/2 ML VIAL IVP ONE (13:48)
[2020-11-24] MEDS ORDERED: MIDAZOLAM 2 MG/2 ML VIAL IVP ONE (13:49)
[2020-11-24] MEDS ORDERED: BUPIVACAINE (PF) 0.25% 30 ML VIAL SQ ONE ×2 (13:57→14:30)
[2020-11-24] MEDS ORDERED: LIDOCAINE 2%-EPI 1:100,000 20 ML VIAL SQ ONE ×2 (13:58→14:30)
[2020-11-24] MEDS ORDERED: LIDOCAINE 1% INJ 10MG/ML (20 ML MDV) ONE ×2 (13:59)
[2020-11-24] MEDS ORDERED: HYDROmorphone (PF) 1 MG/ML ONE ×2 (13:59)
[2020-11-24] MEDS ORDERED: fentaNYL (PF) 50 MCG/ML 2 ML AMP ONE ×2 (13:59)
[2020-11-24] MEDS ORDERED: methylPREDNISolone ACETATE 80 MG/ML 1 ML VIAL INJ ONE ×2 (13:59→15:12)
[2020-11-24] MEDS ORDERED: PROPOFOL 10 MG/ML 20 ML VIAL IV ONE ×2 (13:59)
[2020-11-24] MEDS ORDERED: THROMBIN (BOVINE) 5,000 UNIT VIAL TOPICAL ONE ×2 (13:59→14:10)
[2020-11-24] MEDS ORDERED: SUCCINYLCHOLINE CHLORIDE 100 MG/5 ML SYR IV ONE ×2 (13:59)
[2020-11-24] MEDS ORDERED: MIDAZOLAM 2 MG/2 ML VIAL ONE ×2 (13:59)
[2020-11-24] MEDS ORDERED: ePHEDrine SULFATE/0.9% NACL/PF 50 MG/5 ML SYRINGE IV ONE ×2 (13:59)
[2020-11-24] MEDS ORDERED: GELATIN SPONGE,ABSORB (SMALL) 1 EACH SPONGE TOPICAL ONE ×2 (13:59→14:10)
[2020-11-24] MEDS ORDERED: GLYCOPYRROLATE 0.2 MG/ML 2 ML VIAL ONE ×2 (13:59)
[2020-11-24] MEDS ORDERED: LACTATED RINGERS 1,000 ML IV ONE (14:53)
--- NOTE | 2020-11-24 15:13 | FL ---
EXAMINATION TYPE: FL guidance operating room DATE OF EXAM: 11/24/2020 HISTORY: Fluoroscopy time 4 seconds of fluoroscopy provided. IMPRESSION: 1. Fluoroscopy time.
--- NOTE | 2020-11-24 15:47 | P.OP ---
Date of Procedure: 11/24/20 Preoperative Diagnosis: Herniated nucleus pulposis L5-S1, right lower extremity radiculopathy, right lower extremity weakness, intractable low back pain and right lower extremity pain Postoperative Diagnosis: Same Anesthesia: GETA Pathology: none sent Condition: stable Disposition: PACU Description of Procedure: BRIEF OPERATIVE NOTE Preoperative Diagnosis:Herniated nucleus pulposis L5-S1, right lower extremity radiculopathy, right lower extremity weakness, intractable low back pain and right lower extremity pain Postoperative Diagnosis:Herniated nucleus pulposis L5-S1, right lower extremity radiculopathy, right lower extremity weakness, intractable low back pain and right lower extremity pain Procedure: Laminectomy and decompression L5-S1 Discectomy for decompression L5-S1 Surgeon: Dr. Linder Inbound Sales Manager: Nursing first Asst. Anesthesia: General anesthesia per Dr. Alatorre Estimated blood loss: Approximately 50 mL Complications: None apparent Components implanted: None Disposition: To recovery room in good stable condition. OPERATIVE INDICATIONS The patient has been having issues in their lower back and lower extremities. He felt a sudden pain after golfing and had acute onset of severe right lower extremity radicular pain. A long history of low back pain and some radicular symptoms but this was a different issue for him altogether. He was essentially incapacitated due to pain and unable to mobilize and unable to get up on his own. He was having significant weakness in his right lower extremity with plantar flexion which was new for him. The patient has been through conservative treatment. He is treated with IV antibiotics and medical management and we had interventional pain management see him as well. With his persistent pain and intractable symptoms as well as weakness in his lower extremity and the new findings of a new disc herniation at L5-S1 which correlated with his symptoms we felt that surgery was reasonable option for him. We discussed the possibility of decompression and discectomy at L5-S1. We discussed various treatment options including surgery, and the patient wishes to proceed with surgery We discussed the risk, patient's alternatives and benefits of surgery including but not limited to, risk of bleeding risk of infection, risk of need for further surgery, risk of decreased, loss of motion, loss of function, nerve damage, paralysis, heart attack, blindness and . OPERATIVE SUMMARY After discussing all the risks, patient alternatives and benefits at length, the patient elected to proceed with surgical intervention, signed informed consent, and presented for their procedure. The patient was seen and examined in the preoperative holding area and the surgical site was marked. The patient was given antibiotics and brought to the operating room. The patient was sedated and intubated by anesthesia in standard fashion. The patient was positioned on to the operating room table in a prone position on the appropriate frame which was well-padded and well molded. We were careful to pad any bony prominences and pressure points. We were careful to maintain the patient's cervical spine and good neutral alignment and position throughout. The patient was prepped and draped in a normal standard fashion. An appropriate timeout and keystone protocol performed. We were able to proceed with the surgery. Fluoroscopy was utilized to establish the appropriate level at L5-S1. The local wound area was infiltrated with local anesthetic. An incision was made at the midline longitudinally over the appropriate levels approximately 3 cm at L5-S1. Dissection was taken down subcutaneously to the level of the fascia which was split midline. Dissection was taken over the lamina. Intraoperative fluoroscopy was taken which showed a marker at the appropriate level at L5-S1. With the appropriate level positively confirmed, we were able to proceed with laminectomy. The wound was copiously irrigated and suctioned dry as had been done periodically throughout the case. I performed a laminectomy with a combination of curettes and a high-speed bur and Kerrison rongeurs. A small medial facetectomy was performed again further access. A partial foraminotomy was also performed. Portions of the ligamentum flavum were taken down to expose the dura and traversing nerve root. I was able to mobilize the traversing nerve root and gain access to the disc space. Note was made of obvious compression from the disc. Protecting the soft tissue structures, a sma ll annulotomy was established. I was able to perform discectomy and remove any extruded disc fragments and any loose fragments from within the disc itself. It was obvious that there was significant tightness at the area and disc extrusion with herniation which was able to be removed. This gave good relief of the impingement on the nerve. There is some disc desiccation noted. I tried to preserve the disc annulus that appeared stable. There were no further extruded fragments noted. There is no evidence of dural tear or leak. Good hemostasis maintained. The wound was copiously irrigated and suctioned dry. Good decompression and discectomy was noted. We were able to proceed with closure. The fascia was closed for a watertight closure. The subcuticular tissue was closed with absorbable suture. The wound was cleaned and dried and dressed with the appropriate dressing. The drapes were broken down. The patient was gently rolled back onto their hospital bed being careful to maintain their cervical spine and good neutral alignment and position. They were woken up by anesthesia, extubated, and brought to the recovery room in good stable condition. The patient will be admitted to the hospital for observation and for appropriate postoperative care, medical management and monitoring. We will continue to follow them closely about the postoperative course.
[2020-11-24] MEDS: HYDROmorphone 1 MG/ML 1 ML SYRINGE IVP ONE ×2 (15:53→15:58)
[2020-11-24 16:33] VITALS: RESP 16
[2020-11-24] MEDS ORDERED: lisinopriL 10 MG TAB PO SCH (21:00)
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
[2020-11-25 03:04] VITALS: BP 104/62; PULSE 77; TEMP 98
[2020-11-25] MEDS: HYDROcodone/APAP 5-325MG 1 EACH TAB PO SCH (03:46)
--- NOTE | 2020-11-25 08:01 | P.DS ---
Providers Date of admission: 11/23/20 15:21 Attending physician: Quirino Linder Consults: 11/21/20 12:02 Consult Physician Routine Consulting Provider: Destiny Manning Consult Reason/Comments: Right lower extremity radiculopathy Do you want consulting provider notified?: Yes Primary care physician: [facility] Course: The patient presented on the day of admission due to his severe incapacitating right lower extremity pain with weakness. The patient was found have a new disc herniation at L5-S1 which correlated with his symptoms. He was having some weakness with plantar flexion. He was unable to ambulate on his own. We started him on oral medication with steroids and had interventional pain management see him as well. Scheduling not favorable for interventional pain management he was unable to undergo an epidural steroid injection. He is not having any benefit with IV steroid or pain medication and therapy. He felt he was having worsening symptoms and with his weakness and his new disc herniation we felt that he was a candidate for surgical intervention. He underwent his surgical intervention on November 24 as per his operative note. There was findings of a extruded fragment with significant stenosis at the area. Postoperatively he is having great improvement. He feels his pain is significantly better and he is able to manage quite nicely. He has been amb ulatory in his room. He is taking less medications. He feels he is getting strength back and his right lower extremity. He still has some pain but it is manageable for him today. Physical Exam The incision site is clean dry and intact. There is no erythema no drainage. There is no purulence no evidence of infection. His back is clean and dry. Abdomen soft and nontender. Chest has good excursion with deep inspiration and expiration. The patient has active and passive range of motion intact at the upper and lower extremities. There seems to be some improvement in the strength in his letter flexion of the right lower extremity. He has negative straight leg raise. He still has some altered sensation in his right lower extremity. Hospital Course He is admitted for his disc herniation with right lower extremity weakness and intractable pain. The patient was going through conservative treatment but was not having any benefit at all and ultimately decided to undergo surgical i ntervention for laminectomy decompression and discectomy at L5-S1 is postoperative day #1 today The patient has been making good progress postoperatively. He feels his leg is significantly better and he is able to mobilize better overnight and this morning. They have completed the prophylactic antibiotics without any signs or symptoms of infection. The patient has been able to advance their diet, and is tolerating diet adequately. The pain was initially controlled with IV medications and is now controlled appropriately with oral medications. The patient has been able to increase their mobilization. The patient has progressed appropriately. I think they are in good stable condition for discharge today. They will be sent home with appropriate prescriptions. I answered their questions to the best of my ability in a language that they can understand and they are agreeable with the plan. They will follow up as directed in approximately 2 weeks or sooner if he is having problems. Patient Condition at Discharge: Good Plan - Discharge Summary Discharge Rx Participant: No New Discharge Prescriptions: New Hydrocodone/Acetaminophen [[place] 7.5-325] 1 tab PO Q6HR PRN 3 Days #28 tab PRN Reason: Pain No Action HYDROcodone/APAP 7.5-325MG [[place] 7.5-325] 1 tab PO QID PRN PRN Reason: Pain lisinopriL [Prinivil] 20 mg PO HS amLODIPine [Norvasc] 5 mg PO DAILY Rivaroxaban [Xarelto] 20 mg PO HS hydroCHLOROthiazide [Hydrodiuril] 25 mg PO DAILY Discharge Medication List HYDROcodone/APAP 7.5-325MG [[place] 7.5-325] 1 tab PO QID PRN 06/29/14 [History] lisinopriL [Prinivil] 20 mg PO HS 06/29/14 [History] Rivaroxaban [Xarelto] 20 mg PO HS 09/04/18 [History] amLODIPine [Norvasc] 5 mg PO DAILY 09/04/18 [History] hydroCHLOROthiazide [Hydrodiuril] 25 mg PO DAILY 09/04/18 [History] Hydrocodone/Acetaminophen [[place] 7.5-325] 1 tab PO Q6HR PRN 3 Days #28 tab 11/24/20 [Rx] Follow up Appointment(s)/Referral(s): Orlando Louis MD [Primary Care Provider] - 1-2 days Activity/Diet/Wound Care/Special Instructions: Keep site clean. May shower with waterproof Tegaderm intact. Do not soak in a tub. After 72 hours postoperatively, patient May remove dressing and then may shower with area uncovered. Leave Steri-Strips intact and allow them to fray off on their own. May ambulate as tolerated. Avoid heavy or rigorous activity. No repetitive bending twisting or lifting. No overhead work. Discharge Disposition: HOME SELF-CARE
[2020-11-25] MEDS: NAPROXEN 250 MG TAB PO SCH (08:34)
[2020-11-25] MEDS: BACLOFEN 10 MG TAB PO SCH (08:35)
[2020-11-25] MEDS: GABAPENTIN 300 MG CAP PO SCH (08:35)
[2020-11-25] MEDS: amLODIPine 5 MG TAB PO SCH (08:35)
[2020-11-25] MEDS: predniSONE 20 MG TAB PO SCH (08:51)
== END 2020-11-25 10:19 | disposition home or self-care (01) ==
LOC: EC 06:35 → 6NMEDSUR 10:11 → OBSVTOIN 11-23 15:21 → INTOOBSV 11-23 15:21 → UNDODISIN 11-25 10:19
PROVIDERS: ADMIT Orthopaedic Surgery Orthopaedic Surgery of the Spine; ATTEND Orthopaedic Surgery Orthopaedic Surgery of the Spine
DX: M51.17 Intervertebral disc disorders with radiculopathy, lumbosacral region (principal); M47.816 Spondylosis without myelopathy or radiculopathy, lumbar region; G89.4 Chronic pain syndrome; G62.9 Polyneuropathy, unspecified; E78.5 Hyperlipidemia, unspecified; I11.9 Hypertensive heart disease without heart failure; F41.9 Anxiety disorder, unspecified; F32.9 Major depressive disorder, single episode, unspecified; D75.A Glucose-6-phosphate dehydrogenase (G6PD) deficiency without anemia; F40.240 Claustrophobia; M79.18 Myalgia, other site; M54.2 Cervicalgia; Z20.822 Contact with and (suspected) exposure to COVID-19; Z87.39 Personal history of other diseases of the musculoskeletal system and connective tissue; Z87.2 Personal history of diseases of the skin and subcutaneous tissue; Z86.711 Personal history of pulmonary embolism; Z86.718 Personal history of other venous thrombosis and embolism; Z86.010 Personal history of colon polyps; Z79.899 Other long term (current) drug therapy; Z79.01 Long term (current) use of anticoagulants; Z91.048 Other nonmedicinal substance allergy status; Z98.818 Other dental procedure status; Z98.890 Other specified postprocedural states; Z82.49 Family history of ischemic heart disease and other diseases of the circulatory system; Z83.3 Family history of diabetes mellitus; Z82.5 Family history of asthma and other chronic lower respiratory diseases; Z80.8 Family history of malignant neoplasm of other organs or systems; Z81.2 Family history of tobacco abuse and dependence
CPT/HCPCS: 63047; 96376 ×3; 96372 ×3; 96375; 96374; 99284; 80048 ×2; 85025 ×2; 85610; 87635; 72100; 72020; 72148; G0378 ×5; J2250; J2270; J1040; J2360; J1720; J2920 ×2; J2930; J0690; J2405; J2001; J1650 ×2; J3010; J1170 ×6; J1885 ×3; J0330; J2704; J7512 ×2

== ENCOUNTER → 2021-11-23 | Outpatient (CLI) | payer BC ==
[2021-11-23 08:17] VITALS: BP 137/69; PULSE 70; RESP 18; TEMP 98.1
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
== END | disposition home or self-care (01) ==
LOC: PNWHC3 07:22
PROVIDERS: ATTEND Specialist
DX: M47.896 Other spondylosis, lumbar region (principal)
CPT/HCPCS: 99211

== ENCOUNTER 2022-01-05 06:11 | Day surgery (SDC) | payer BC ==
[2022-01-04 10:52] VITALS: BMI 33.9
[2022-01-05 06:37] VITALS: RESP 16; TEMP 98
[2022-01-05] MEDS ORDERED: LACTATED RINGERS 1,000 ML IV ONE (06:37)
[2022-01-05] MEDS ORDERED: LIDOCAINE 2% INJ 20 MG/ML (2 ML VIAL) ONE (06:58)
[2022-01-05] MEDS ORDERED: ROPIVACAINE 5MG/ML 20ML VIAL ONE (06:58)
[2022-01-05] MEDS ORDERED: fentaNYL (PF) 50 MCG/ML 2 ML AMP ONE (06:59)
[2022-01-05] MEDS ORDERED: MIDAZOLAM 2 MG/2 ML VIAL ONE (06:59)
[2022-01-05] MEDS ORDERED: LACTATED RINGERS 1,000 ML IV SCH (07:00)
--- NOTE | 2022-01-05 07:26 | P.PCN ---
Date of Procedure: 01/05/22 Description of Procedure: PREOPERATIVE DIAGNOSIS: Lumbar Facet Arthropathy without myelopathy POSTOPERATIVE DIAGNOSIS: Same PROCEDURES: Bilateral Radiofrequency thermocoagulation of L4-5, L5-S1 medial branches, with fluoroscopic guidance ANESTHESIA: IV sedation per nurse upholstery auto trimmer, lidocaine 1% 20 ML's Imaging: Fluoroscopy was used, images where saved to the medical record PROCEDURE INDICATION: The patient with low back pain secondary to lumbar facet arthropathy who had more than 50% relief of pain with previous diagnostic lumbar medial branch block with local anesthetic. PROCEDURE DESCRIPTION / TECHNIQUE: The patient was seen and identified in the preoperative area. Risks, benefits, complications, including but not limited to risk of infection, bleeding, allergic reactions to the medications and no complete pain relief, and alternatives were discussed with the patient, the patient agreed to proceed with the procedure and signed the consent. IV was started. Vital signs remained stable throughout the procedure. Patient was taken to the OR and time out was completed. The patient was placed in the prone position on the procedure table. The lumber area was prepped and draped in the usual sterile fashion. Vital signs were closely monitored during the procedure. IV sedation was used during the procedure to decrease patient anxiety. Using AP and then oblique fluoroscopy, the eye of the John dog corresponding to the connection between the superior and transverse articular processes of L4, L5, and sacral Ala were identified, marked, and localized with 1% lidocaine. Subsequently, a 20 [id number] radiofrequency cannula with a 10-mm active tip was advanced guided by fluoroscopy to the junction of the pedicle and transverse process of each identified level. Each site then underwent sensory testing at 50 Hz and 0 to 1 volt and motor testing at 2.5 Hz and 0 to 3 volt with local stimulation, no radicular symptoms sensed by the patient and no obvious motor stimulation noted. Thereafter the tested sites underwent radiofrequency thermocoagulation at 80 degrees celsius for 90 seconds after injecting 1 ml of PF lidocaine 1%. Then after the thermocoagulation was done, 1 ml of the block solution containing ropivaciane 0.5% was injected at the lesioned sites after negative aspiration of CSF and blood and with no paresthesias. Cannulas were retracted. At the end of the procedure, the skin was cleansed and bandages were applied. COMPLICATIONS: No acute complications. DISPOSITION / PLANS: The patient was placed in a supine position and transferred to the recovery area in a stable condition for observation and was discharged from the recovery room after meeting discharge criteria. Home discharge instructions given to the patient by the staff. The patient was reexamined prior to discharge. Patient will follow up as directed.
[2022-01-05] MEDS ORDERED: IV FLUID CONTINUATION 1,000 ML IV ONE ×2 (07:30)
--- NOTE | 2022-01-05 07:46 | FL ---
Fluoroscopy HISTORY: Pain 11 seconds fluoroscopy time supplied to the referring clinician. 6 intraoperative C-arm images docum ent the procedure. See dictated report from anesthesia.
[2022-01-05 07:49] VITALS: BP 105/65; PULSE 70
== END 2022-01-05 08:02 | disposition home or self-care (01) ==
LOC: ORPAIN 06:11
PROVIDERS: ATTEND Hospitalist
DX: M47.26 Other spondylosis with radiculopathy, lumbar region (principal); I10 Essential (primary) hypertension; Z86.718 Personal history of other venous thrombosis and embolism; Z79.899 Other long term (current) drug therapy
CPT/HCPCS: 64635; 64636; J2250; J2001 ×2; J3010; J2795

== ENCOUNTER 2025-02-17 05:50 | Day surgery (SDC) | payer BC ==
[2025-02-16 10:31] VITALS: BMI 29.8
[2025-02-17] MEDS: IV FLUID CONTINUATION 1,000 ML IV ONE (06:19)
[2025-02-17] MEDS ORDERED: LIDOCAINE 1% (10MG/ML) FOR IV START INTRADERMA PRN (06:25)
[2025-02-17 06:30] VITALS: TEMP 97.8
[2025-02-17] MEDS: LACTATED RINGERS 1,000 ML IV SCH (06:36)
[2025-02-17] MEDS ORDERED: PROPOFOL 10 MG/ML 20 ML VIAL IV ONE (07:00)
--- NOTE | 2025-02-17 07:29 | P.PCN ---
Date of Procedure: 02/17/25 Procedure(s) Performed: BRIEF HISTORY: Patient is a 59-year-old pleasant white male scheduled for an elective colonoscopy as a part of screening for history of colon polyps. Last colonoscopy was 3 years ago and was noted to have adenoma. PROCEDURE PERFORMED: Colonoscopy. PREOPERATIVE DIAGNOSIS: Screening for history of colon polyp. IV sedation per Anesthesia. PROCEDURE: After informed consent was obtained, the patient, was brought into the endoscopy unit. IV sedation was administered by Anesthesia under continuous monitoring. Digital rectal examination was normal. Initially the Olympus CF-160 flexible video colonoscope was then inserted in the rectum, gradually advanced into the cecum without any difficulty. Careful examination was performed as the scope was gradually being withdrawn. Ileocecal valve and the appendiceal orifice were visualized and appeared normal. Prep was fair.. Mucosa of the cecum, ascending colon, transverse colon, descending colon, sigmoid colon, and rectum appeared normal. Scattered sigmoid diverticulosis. Retroflexion was performed in the rectum and no lesions were seen. The patient tolerated the procedure well. IMPRESSION: Normal-appearing colon from rectum to cecum with no evidence of colorectal neoplasia Scattered sigmoid diverticulosis. RECOMMENDATIONS: Findings of this examination were discussed with the patient as well as his family. He was advised to have repeat screening colonoscopy in 10 years..
[2025-02-17 07:35] VITALS: RESP 14
[2025-02-17 07:49] VITALS: BP 102/58; PULSE 67
== END 2025-02-17 08:25 | disposition home or self-care (01) ==
LOC: ORWHC2ENDO 05:50
PROVIDERS: ATTEND Internal Medicine Gastroenterology
DX: Z12.11 Encounter for screening for malignant neoplasm of colon (principal); K57.30 Diverticulosis of large intestine without perforation or abscess without bleeding; I10 Essential (primary) hypertension; E78.5 Hyperlipidemia, unspecified; Z79.899 Other long term (current) drug therapy; Z86.711 Personal history of pulmonary embolism; Z86.0101 Personal history of adenomatous and serrated colon polyps
CPT/HCPCS: 45378; J2704